=== PATIENT | female | born 1935 | race American Indian/Alaskan Native ===

== ENCOUNTER 2017-04-11 10:39 | Emergency (ER) | payer OTHER ==
[2017-04-11 10:51] VITALS: BP 129/74
[2017-04-11] MEDS ORDERED: MOTRIN PO ONE (13:33)
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
== END 2017-04-11 14:30 | disposition home or self-care (01) ==
LOC: ED 10:39
DX: S13.4XXA Sprain of ligaments of cervical spine, initial encounter (principal); V49.49XA Driver injured in collision with other motor vehicles in traffic accident, initial encounter; X58.XXXA Exposure to other specified factors, initial encounter; Y93.9 Activity, unspecified; Y92.9 Unspecified place or not applicable; Y99.9 Unspecified external cause status
CPT/HCPCS: 99282

== ENCOUNTER 2019-06-22 10:14 | Emergency (ER) | payer MEDICARE ==
--- NOTE | 2019-06-22 11:29 | Emergency Department Report ---
ED General Adult HPI - General Chief complaint: Recheck/Abnormal Lab/Rx Stated complaint: ABNORMAL LABS Time Seen by Provider: 06/22/19 11:13 Source: patient, family, RN notes reviewed Mode of arrival: Ambulatory Limitations: No Limitations - History of Present Illness Initial comments: This is an 84-year-old female. The patient is not known to this provider previously. Her primary care doctor is Dr. 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 She is sent to the ER by her primary care doctor for abnormal outpatient laboratory studies, including a hemoglobin of 6.9, and a hematocrit of 21.9. The patient endorses 3-4 months of generalized weakness and dizziness. She has no physical pain. She denies DVT, pulmonary embolus risk factors. She endorses unintentional weight loss over the past few months. No fevers, chills, nausea, vomiting. She denies hematemesis, bright red blood per rectum. No recent colonoscopy, Pap smear, or mammogram that she is aware. -: Gradual, month(s) Consistency: intermittent Improves with: none Worsens with: none - Related Data Previous Rx's Medication Instructions Recorded Last Taken Type Cyclobenzaprine HCl [Flexeril 5 MG 5 mg PO TID 5 Days tab 04/11/17 Unknown Rx TAB] Ibuprofen [Motrin 600 MG tab] 600 mg PO Q8H PRN 5 Days tablet 04/11/17 Unknown Rx Nitrofurantoin Bond/M-Cryst 100 mg PO Q12HR #13 capsule 06/22/19 Unknown Rx [Macrobid CAP] Allergies Allergy/AdvReac Type Severity Reaction Status Date / Time No Known Allergies Allergy Unverified 04/11/17 10:45 ED Review of Systems ROS: Stated complaint: ABNORMAL LABS Other details as noted in HPI Constitutional: malaise, weakness. denies: fever Eyes: denies: eye discharge ENT: denies: epistaxis Respiratory: denies: cough, shortness of breath Cardiovascular: denies: chest pain, syncope Gastrointestinal: denies: nausea, vomiting, hematemesis, melena, hematochezia Genitourinary: denies: dysuria Musculoskeletal: myalgia. denies: back pain Skin: denies: lesions Neurological: weakness Hematological/Lymphatic: denies: easy bleeding ED Past Medical Hx - Past Medical History Previous Medical History?: Yes Additional medical history: Glaucoma, Vaginal delivery x 6 - Surgical History Past Surgical History?: Yes Additional Surgical History: x1, Partial hysterectomy - Social History Smoking Status: Never Smoker Substance Use Type: None - Medications Home Medications: Home Medications Medication Instructions Recorded Confirmed Last Taken Type Cyclobenzaprine HCl [Flexeril 5 MG 5 mg PO TID 5 Days tab 04/11/17 Unknown Rx TAB] Ibuprofen [Motrin 600 MG tab] 600 mg PO Q8H PRN 5 Days tablet 04/11/17 Unknown Rx Nitrofurantoin Bond/M-Cryst 100 mg PO Q12HR #13 capsule 06/22/19 Unknown Rx [Macrobid CAP] ED Physical Exam - General Limitations: No Limitations General appearance: alert, in no apparent distress - Head Head exam: Present: atraumatic, normocephalic - Eye Eye exam: Present: normal appearance, EOMI, other (visual acuity intact to finger counting, color perception at a closest). Absent: nystagmus - ENT ENT exam: Present: normal exam, normal orophraynx, mucous membranes moist, normal external ear exam - Neck Neck exam: Present: normal inspection, full ROM. Absent: tenderness, m eningismus - Respiratory Respiratory exam: Present: normal lung sounds bilaterally. Absent: respiratory distress, wheezes, rales, rhonchi, stridor, chest wall tenderness, accessory muscle use, decreased breath sounds - Cardiovascular Cardiovascular Exam: Present: regular rate, normal rhythm, normal heart sounds. Absent: bradycardia, tachycardia, irregular rhythm, systolic murmur, diastolic murmur, rubs, gallop - GI/Abdominal GI/Abdominal exam: Present: soft. Absent: distended, tenderness, guarding, rebound, rigid, pulsatile mass - Rectal Rectal exam: Present: normal inspection, normal rectal tone, other (chaperoned by Ms. Renée Cortés). Absent: heme (-) stool, heme (+) stool, black stool, bloody stool, fecal impaction, hemorrhoids, mass, tenderness - Extremities Exam Extremities exam: Present: normal inspection, full ROM, other (2+ pulses noted in the bilateral upper, lower extremities. Compartments soft. No long bony tenderness. The pelvis is stable.). Absent: pedal edema, joint swelling, calf tenderness - Back Exam Back exam: Present: normal inspection, full ROM. Absent: tenderness, CVA tenderness (R), CVA tenderness (L), paraspinal tenderness, vertebral tenderness - Neurological Exam Neurological exam: Present: alert, oriented X3, normal gait, other (Extraocular movements intact. Tongue midline. No facial droop. Facial sensation intact to light touch in the V1, V2, V3 distribution bilaterally. 5 and 5 strength in 4 extremities.. Sensation is intact to light touch in 4 extremities.). Absent: motor sensory deficit - Psychiatric Psychiatric exam: Present: normal affect, normal mood - Skin Skin exam: Present: warm, dry, intact, normal color. Absent: rash ED Course Vital Signs 06/22/19 06/22/19 06/22/19 10:20 13:15 14:09 Temperature 97.9 F 97.9 F Pulse Rate 63 56 L Respiratory 20 15 15 Rate Blood Pressure 115/63 Blood Pressure 117/58 [Left] O2 Sat by Pulse 100 99 99 Oximetry 06/22/19 06/22/19 06/22/19 15:58 16:13 16:14 Temperature 98.3 F 98.5 F 98.5 F Pulse Rate 82 80 80 Respiratory 18 21 21 Rate Blood Pressure 107/58 100/52 Blood Pressure 100/52 [Left] O2 Sat by Pulse 100 100 100 Oximetry 06/22/19 06/22/19 06/22/19 16:57 17:07 17:34 Temperature 98.1 F 98.3 F 98.3 F Pulse Rate 69 71 70 Respiratory 14 14 15 Rate Blood Pressure 106/48 109/57 109/57 Blood Pressure [Left] O2 Sat by Pulse 100 100 100 Oximetry 06/22/19 06/22/19 06/22/19 17:49 17:50 17:51 Temperature 98.4 F 98.6 F 98.6 F Pulse Rate 71 69 69 Respiratory 17 19 19 Rate Blood Pressure 121/65 116/60 116/60 Blood Pressure [Left] O2 Sat by Pulse 100 100 100 Oximetry 06/22/19 06/22/19 06/22/19 17:52 18:19 19:30 Temperature 98.6 F 98.3 F 98.3 F Pulse Rate 69 75 75 Respiratory 19 18 18 Rate Blood Pressure 114/61 Blood Pressure 116/60 114/61 [Left] O2 Sat by Pulse 100 100 100 Oximetry 06/22/19 21:00 Temperature 98.2 F Pulse Rate 73 Respiratory 22 Rate Blood Pressure 129/66 Blood Pressure 129/66 [Left] O2 Sat by Pulse 100 Oximetry - Reevaluation(s) Reevaluation #1: 06/22/19 12:42 Differential diagnosis, including not limited to: Symptomatic anemia, malignancy, GI bleed, urinary tract infection Assessment and plan: 84-year-old female with a complaint of painless weakness, weight loss, for a few months. The patient is afebrile with reassuring vital signs. The patient walks with a steady gait and has an unremarkable physical exam. She is guaiac-negative on rectal examination. She denies abdominal pain. She has no abdominal tenderness. She indicates no hematemesis or bright red blood per rectum. Patient is not up-to-date with outpatient screening studies, including colonoscopy, Pap smear, and mammogram. Extensive discussion had with patient and family regarding vital signs, laboratory studies, and overall physical examination. Patient and family are amenable to a packed red blood cell transfusion. Patient and family preferred to be discharged to follow-up as an outpatient. They did not want to be admitted to the hospital, as they're concerned about the risks of DVT, slip and fall, delirium, C. difficile, infection. Through shared decision making, we agreed to transfuse packed red blood cells, and then have the patient follow up with outpatient primary care doctor and/or liquid loader for further evaluation. We did extensively discuss the need to further clarify goals of care, and long-term goals of care, we also discussed the need for outpatient testing for colonoscopy, Pap smear, mammography, depen ding on goals of care. This is discussed extensively with both the patient, daughter, and nurse at the bedside. Reevaluation #2: 06/22/19 15:08 Patient resting comfortably in stretcher in no acute distress. She is eating food without difficulty. Urinalysis reviewed and appreciated. Macrobid ordered. I am informed Reevaluation #3: 06/22/19 18:19 Patient observed for over 8 hours without clinical deterioration. We have reevaluated the patient multiple times while here in the department. Patient and family are amenable to plan for discharge with outpatient follow-up. The patient appears quite comfortable. ED Medical Decision Making - Lab Data Result diagrams: 06/22/19 11:47 06/22/19 11:47 Vital Signs 06/22/19 10:20 Temperature 97.9 F Pulse Rate 63 Respiratory 20 Rate Blood Pressure 115/63 O2 Sat by Pulse 100 Oximetry Lab Results 06/22/19 06/22/19 06/22/19 Range/Units 11:47 11:47 11:47 WBC 5.9 (4.5-11.0) K/mm3 RBC 2.70 L (3.65-5.03) M/mm3 Hgb 6.8 L (10.1-14.3) gm/dl Hct 20.9 L (30.3-42.9) % MCV 77 L (79-97) fl MCH 25 L (28-32) pg MCHC 32 (30-34) % RDW 17.2 H (13.2-15.2) % Plt Count 443 H (140-440) K/mm3 PT 13.8 (12.2-14.9) Sec. INR 1.09 (0.87-1.13) Sodium 135 L (137-145) mmol/L Potassium 4.9 (3.6-5.0) mmol/L Chloride 103.4 (98-107) mmol/L Carbon Dioxide 26 (22-30) mmol/L Anion Gap 11 mmol/L BUN 18 H (7-17) mg/dL Creatinine 1.2 (0.7-1.2) mg/dL Estimated GFR 52 ml/min BUN/Creatinine Ratio 15 % Glucose 90 (65-100) mg/dL Calcium 9.2 (8.4-10.2) mg/dL Magnesium 2.20 (1.7-2.3) mg/dL Total Bilirubin 0.30 (0.1-1.2) mg/dL AST 13 (5-40) units/L ALT 7 (7-56) units/L Alkaline Phosphatase 70 (35-129) units/L Total Creatine Kinase 51 (30-135) units/L Total Protein 9.1 H (6.3-8.2) g/dL Albumin 3.0 L (3.9-5) g/dL Albumin/Globulin Ratio 0.5 % Blood Type Crossmatch 06/22/19 Range/Units 11:47 WBC (4.5-11.0) K/mm3 RBC (3.65-5.03) M/mm3 Hgb (10.1-14.3) gm/dl Hct (30.3-42.9) % MCV (79-97) fl MCH (28-32) pg MCHC (30-34) % RDW (13.2-15.2) % Plt Count (140-440) K/mm3 PT (12.2-14.9) Sec. INR (0.87-1.13) Sodium (137-145) mmol/L Potassium (3.6-5.0) mmol/L Chloride (98-107) mmol/L Carbon Dioxide (22-30) mmol/L Anion Gap mmol/L BUN (7-17) mg/dL Creatinine (0.7-1.2) mg/dL Estimated GFR ml/min BUN/Creatinine Ratio % Glucose (65-100) mg/dL Calcium (8.4-10.2) mg/dL Magnesium (1.7-2.3) mg/dL Total Bilirubin (0.1-1.2) mg/dL AST (5-40) units/L ALT (7-56) units/L Alkaline Phosphatase (35-129) units/L Total Creatine Kinase (30-135) units/L Total Protein (6.3-8.2) g/dL Albumin (3.9-5) g/dL Albumin/Globulin Ratio % Blood Type O POSITIVE Crossmatch See Detail - EKG Data -: EKG Interpreted by Me EKG shows normal: sinus rhythm Rate: normal - EKG Data When compared to previous EKG there are: previous EKG unavailable 06/22/19 12:49 This is a sinus rhythm, left axis deviation, left anterior fascicular block, borderline left ventricular hypertrophy, no endorsement of chest pain, rate 64 bpm, QTC within normal limits, EKG is abnormal, the EKG is not consistent with ST elevation myocardial infarction. There is no prior EKG available for comparison. Critical Care Time: Yes Critical care time in (mins) excluding proc time.: 35 Critical care attestation.: If time is entered above; I have spent that time in minutes in the direct care of this critically ill patient, excluding procedure time. ED Disposition Clinical Impression: Microcytic anemia, Bacteriuria Disposition: DC- TO HOME OR SELFCARE Is pt being admited?: No Does the pt Need Aspirin: No Condition: Stable Instructions: Abdominal Pain (ED) Additional Instructions: Cultures were sent today, and results will be available in the next 3-5 days. Take the antibiotics as directed, and have your primary care doctor contact the medical records department to obtain culture results. Avoid consumption of Motrin, ibuprofen, Naprosyn, Aleve. Please follow-up with your primary care doctor to coordinate outpatient evaluation for undifferentiated anemia/low blood counts. If patient elects to pursue an aggressive diagnostic workup, recommend outpatient follow-up with gastroenterology within the next month for evaluation for colonoscopy, outpatient follow-up with gynecology for Pap smear, and outpatient follow-up with either primary care or gynecology within the next month for mammogram. Patient may also follow up with the liquid loader within the next month for further evaluation Not following up for recommended workup/evaluation may result in an undiagnosed cancer, tumor, malignancy. Alternatively, patient and family may elect to pursue nonaggressive workup, and focus on comfort care, quality of life, and avoidance of excessive diagnostic testing. This should be further clarified and discussed with the patient, family, and patient's primary care doctor. Please follow up as recommended, return to the ER right away with new, worsening or different symptoms, or symptoms not present on the initial emergency room evaluation. Prescriptions: Nitrofurantoin Bond/M-Cryst [Macrobid CAP] 100 mg PO Q12HR #13 capsule Referrals: [facility] [Provider Group] - as needed (assistant press operator for pap smear/mammogram) JEREMY JOHN MD [Referring] - as needed [facility] [Provider Group] - as needed (gi for colosocopy) MINISTERIO WILLARD MD [Staff Physician] - as needed (blood specialist)
[2019-06-22 12:14] LABS: Hematocrit 20.9 % (30.3-42.9); Hemoglobin 6.8 gm/dl (10.1-14.3); Mean Corpuscular HGB Conc 32 % (30-34); Mean Corpuscular Volume 77 fl (79-97); Platelet Count 443 K/mm3 (140-440); Red Cell Distribution Width 17.2 % (13.2-15.2)
[2019-06-22 12:24] LABS: INR 1.09 (0.87-1.13)
[2019-06-22 12:29] LABS: Calcium 9.2 mg/dL (8.4-10.2)
[2019-06-22] MEDS ORDERED: NACL 0.9% 500 ML 500 ML IV ONE (12:38)
[2019-06-22 13:02] LABS: Bacteria,Urine 1+ /HPF (Negative); Bilirubin,Urine NEG (Negative); Blood,Urine SM (Negative); Color,Urine Straw (Yellow); Mucus,Urine FEW /HPF; Protein,Urine <15 mg/dL mg/dL (Negative); Urobilinogen,Urine < 2.0 mg/dL (<2.0)
[2019-06-22] MEDS ORDERED: MACROBID PO ONE (15:01)
[2019-06-22] MEDS ORDERED: NACL 0.9% 500 ML 500 ML ONE ×2 (15:43→17:43)
[2019-06-22 21:22] VITALS: BP 129/66
== END 2019-06-22 21:00 | disposition home or self-care (01) ==
LOC: ED 10:14
DX: D50.9 Iron deficiency anemia, unspecified (principal); R82.71 Bacteriuria; Z90.710 Acquired absence of both cervix and uterus; Z79.899 Other long term (current) drug therapy
CPT/HCPCS: 36415; 36430; 80053; 81001; 82271; 82550; 83735; 84443; 85027; 85610; 86850; 86870; 86880; 86900; 86901; 86922; 87086; 93005; 93010; 99284; J7040; P9016